=== PATIENT | female | born 1995 | race African-American/Black ===

== ENCOUNTER 2017-08-27 13:45 | Emergency (ER) | payer SELFPAY ==
[~2017-08-27] VITALS: Ht 160 cm; Wt 60.0 kg
[2017-08-27 14:15] VITALS: PULSE 66; RESP 18; TEMP 98.7; O2SAT 99
[2017-08-27 14:17] VITALS: BP 133/59
--- NOTE | 2017-08-27 15:57 | PD ---
HPI Chief Complaint: ENT Complaint Time Seen by Provider: 15:34 Travel History International Travel<30 days: No Contact w/Intl Traveler<30days: No Traveled to known affect area: No History of Present Illness HPI 22-year-old female presents to the emergency department with complaint of a "left clogged ear." Denies recent illness to include fever, nasal congestion, sore throat, ear pain. She says there is some pain in her ear depending upon how she tries to clean out her ear. She has tried using peroxide 2 days ago to clean her ear out with some symptom relief at the time but symptoms returned. Symptoms are mild in severity. No known allergies. History of asthma. No primary care provider. Is a student at [employer]. Has no other medical complaints. No other modifying factors or associated signs and symptoms. Allergies-Medications (Allergen,Severity, Reaction): Coded Allergies: No Known Allergies (Verified Allergy, Unknown, 08/27/17) Review of Systems Except as stated in HPI: all other systems reviewed are Neg Physical Exam Narrative GENERAL: Well-nourished, well-developed black female patient, in no acute distress; afebrile, nontoxic-appearing SKIN: Warm and dry. No rash. HEAD: Atraumatic. Normocephalic. EYES: Pupils equal and round. No scleral icterus. No injection or drainage. ENT: Mucosa pink and moist. No erythema or exudates. No uvular edema. No uvular , palatal, or tonsillar deviation. Airway patent. EARS: Bilateral pinnae and external canals appear within normal limits. I am unable to visualize bilateral tympanic membranes secondary to bilateral cerumen impactions; left worse than right. NECK: Trachea midline. No lymphadenopathy. CARDIOVASCULAR: Regular rate. RESPIRATORY: No accessory muscle use. GASTROINTESTINAL: Flat. MUSCULOSKELETAL: No obvious deformities. No clubbing. No cyanosis. No edema. NEUROLOGICAL: Awake and alert. Oriented 3. No obvious cranial nerve deficits. Motor grossly within normal limits. Normal speech. Moves all extremities. 5/5 strength to all extremities. PSYCHIATRIC: Appropriate mood and affect; insight and judgment normal. Data Data Last Documented VS Vital Signs Date Time Temp Pulse Resp B/P (MAP) Pulse Ox O2 Delivery O2 Flow Rate FiO2 08/27/17 14:17 133/59 (83) 08/27/17 14:15 98.7 66 18 99 MDM Medical Screen Exam Complete: Yes Emergency Medical Condition: No Differential Diagnosis Otitis media, cerumen impaction, foreign body, medical clearance Narrative Course 22-year-old female with bilateral cerumen impaction on physical exam. Patient is complaining of left is worse than right. She is afebrile and nontoxic- appearing. Denies fever, vomiting. Denies recent illness. Discussed over-the- counter use of cerumen impaction treatment. Instructed patient to follow-up with the nurse at [facility]. Vital signs are stable and the patient is stable for outpatient follow-up and treatment. The patient has no urgent or emergent medical complaints. There is no emergent or urgent medical need at this time. I instructed the patient to follow up with their primary care provider. A medical screening exam was performed: At the time of evaluation the presenting medical condition was determined not to be of an emergent nature. The patient was given the option of receiving additional care, but declined. Patient was given options for additional community resources from which to obtain care. The Patient Has Been advised to seek medical attention for their presenting complaint. The patient has been advised to return to the ER at any time if an emergent condition develops. Primary Impression: Encounter for medical screening examination Condition: Stable Sarai Burch Aug 27, 2017 15:57
== END 2017-08-27 15:57 | disposition left against medical advice (07) ==
LOC: NEPK 13:45
DX: H61.23 Impacted cerumen, bilateral (principal); J45.909 Unspecified asthma, uncomplicated
CPT/HCPCS: 99281